=== PATIENT | male | born 1965 | race Caucasian/White ===

== ENCOUNTER 2016-07-30 17:51 | Observation (INO) | payer OTHER ==
[~2016-07-30] VITALS: Ht 170.2 cm; Wt 81.6 kg
[~2016-07-30 17:51] MED LIST: ASPIR-LOW81 MG PO; ASPIR-TRIN325 MG PO; LIPITOR TAB 2020 MG PO; LISINOPRIL5 MG PO; LOPRESSOR 25 MG25 MG PO; NITROGLYCERIN0.4 MG SL; PLAVIX 75 MG TA75 MG PO; SIMVASTATIN20 MG PO; TOPROL XL25 MG PO
[2016-07-30 18:50] LABS: HEMOGLOBIN 13.7 gm/dl (14.0-17.5); RED BLOOD COUNT 4.94 M/UL (4.20-5.50); WHITE BLOOD COUNT 11.3 K/UL (4.5-11.0)
[2016-07-30 19:11] LABS: BUN/CREATININE RATIO 13 (0-10)
== END 2016-07-31 15:22 | disposition home or self-care (01) ==
LOC: ER1 17:51 → ZEROF 22:02 → MED SURG 4 22:02
PROVIDERS: Emergency Medicine; ADMIT Internal Medicine
DX: R07.9 Chest pain, unspecified (principal); R91.8 Other nonspecific abnormal finding of lung field; J44.9 Chronic obstructive pulmonary disease, unspecified; I25.10 Atherosclerotic heart disease of native coronary artery without angina pectoris; F17.210 Nicotine dependence, cigarettes, uncomplicated; Z79.82 Long term (current) use of aspirin; Z79.899 Other long term (current) drug therapy; Z95.1 Presence of aortocoronary bypass graft
CPT/HCPCS: 36415; 71010; 71260; 80053; 82550; 82553; 83874; 84484; 85025; 88341; 88342; 93005; 99285; G0378; J2270; J7050; Q9962

== ENCOUNTER → 2016-08-30 | Outpatient (CLI) | payer OTHER | LOC: EMI 14:29 | DX: C34.2 Malignant neoplasm of middle lobe, bronchus or lung (principal) | CPT/HCPCS: 70553; A9577; J7050 ==

== ENCOUNTER → 2016-09-08 | Outpatient (CLI) | payer OTHER | LOC: HEART 5 08:00 | DX: I25.10 Atherosclerotic heart disease of native coronary artery without angina pectoris (principal); E78.5 Hyperlipidemia, unspecified; I10 Essential (primary) hypertension; Z95.1 Presence of aortocoronary bypass graft | CPT/HCPCS: 93306 ==